=== PATIENT | female | born 1990 | race Caucasian/White ===

== ENCOUNTER 2017-06-06 03:28 | Emergency (ER) | payer MEDICAID ==
[~2017-06-06] VITALS: Ht 154.9 cm; Wt 86.0 kg
[2017-06-06 07:51] VITALS: BP 108/69
[2017-06-06 08:00] LABS: BASOPHILS % 0.8 % (0.0-2.0); HEMOGLOBIN. 12.9 g/dL (12.0-16.0); LYMPHOCYTES % 43.8 % (20.0-50.0); MEAN CORPUSCULAR HEMOGLOBIN 28.2 pg (28.0-32.0); MEAN CORPUSCULAR VOLUME 85.5 fL (81.0-99.0); MEAN PLATELET VOLUME 7.8 fl (7.4-10.4); MONOCYTES % 5.6 % (2.0-8.0); NEUTROPHILS % 46.8 % (40.0-76.0); PLATELET 261 x1000/uL (130-400); RED BLOOD CELL COUNT 4.56 mill/uL (4.2-5.4); RED CELL DISTRIBUTION WIDTH 14.2 % (11.6-14.6)
[2017-06-06 08:03] LABS: CHLORIDE 109 mEq/L (98-107)
[2017-06-06 08:13] LABS: CARBON DIOXIDE 28 mEq/L (21-32); TROPONIN I < 0.02 ng/mL (0.00-0.04)
== END 2017-06-06 09:33 | disposition home or self-care (01) ==
LOC: ER 03:28
DX: R07.89 Other chest pain (principal)
CPT/HCPCS: 36415; 71010; 80053; 81025; 84484; 85025; 93005; 99285